=== PATIENT | female | born 1990 | race Caucasian/White ===

== ENCOUNTER 2016-07-19 21:48 | Emergency (ER) | payer OTHER | END 2016-07-19 23:15 | disposition home or self-care (01) | LOC: ER 21:48 | DX: O23.41 Unspecified infection of urinary tract in pregnancy, first trimester (principal); F17.210 Nicotine dependence, cigarettes, uncomplicated; Z90.49 Acquired absence of other specified parts of digestive tract; Z88.1 Allergy status to other antibiotic agents; Z3A.01 Less than 8 weeks gestation of pregnancy | CPT/HCPCS: 36415; 96365; J0696 ==

== ENCOUNTER 2016-07-24 18:36 | Emergency (ER) | payer OTHER | END 2016-07-24 20:20 | disposition home or self-care (01) | LOC: ER 18:36 | DX: O99.89 Other specified diseases and conditions complicating pregnancy, childbirth and the puerperium (principal); R10.31 Right lower quadrant pain; O99.332 Smoking (tobacco) complicating pregnancy, second trimester; F17.210 Nicotine dependence, cigarettes, uncomplicated; Z88.1 Allergy status to other antibiotic agents; Z79.899 Other long term (current) drug therapy; Z3A.19 19 weeks gestation of pregnancy; Z90.49 Acquired absence of other specified parts of digestive tract | CPT/HCPCS: 36415; 80307; 96361; 96374 ==